=== PATIENT | female | born 1960 | race Caucasian/White ===

== ENCOUNTER 2019-12-27 08:03 | Emergency (ER) | payer OTHER ==
[~2019-12-27] VITALS: Ht 157.5 cm; Wt 46.2 kg
[2019-12-27 08:05] VITALS: BP 125/101
[2019-12-27] MEDS ORDERED: DIPH,PERTUSS(ACELL),TET VAC/PF 0.5 ML IM-VACC ONE ×2 (08:45→09:00)
[2019-12-27] MEDS ORDERED: NEOSPORIN OINT. PKT 1 PACKET ONE (08:45)
[2019-12-27] MEDS ORDERED: LIDOCAINE-MPF 1%, 5ML ONE (08:45)
[2019-12-27] MEDS ORDERED: LIDOCAINE-MPF 1%, 5ML INFIL ONE (09:00)
--- NOTE | 2019-12-27 09:30 | NUR ---
Patient/Caregiver given discharge instructions and they have confirmed that they understand the instructions. Patient ambulatory with steady gait. PT LEFT WITH ALL PERSONAL BELONGINGS.
== END 2019-12-27 09:31 | disposition home or self-care (01) ==
LOC: ED 09:25
DX: S61.012A Laceration without foreign body of left thumb without damage to nail, initial encounter (principal); Z87.891 Personal history of nicotine dependence; W26.8XXA Contact with other sharp object(s), not elsewhere classified, initial encounter; Y93.89 Activity, other specified; Y92.89 Other specified places as the place of occurrence of the external cause; Y99.0 Civilian activity done for income or pay
CPT/HCPCS: 12001; 90471; 90715; 99283

== ENCOUNTER → 2020-01-25 | Outpatient (CLI) | payer OTHER | END | disposition home or self-care (01) | LOC: CFH 09:52 | PROVIDERS: ATTEND Nurse Practitioner | DX: S52.572A Other intraarticular fracture of lower end of left radius, initial encounter for closed fracture (principal); S52.615A Nondisplaced fracture of left ulna styloid process, initial encounter for closed fracture; X58.XXXA Exposure to other specified factors, initial encounter; Y93.89 Activity, other specified; Y92.89 Other specified places as the place of occurrence of the external cause; Y99.8 Other external cause status ==